=== PATIENT | male | born 1950 | race Caucasian/White ===

== ENCOUNTER 2016-03-22 09:09 | Inpatient (IN) ==
[2016-03-21 14:01] LABS: Appearance,Urine CLEAR; Bilirubin,Urine NEG (NEG); Color,Urine YELLOW; Glucose,Urine (UA) NEGATIVE (NEG); Leukocyte Esterase,Urine NEG /uL (NEG); Nitrate,Urine NEG (NEG); Protein,Urine NEG (NEG); Specific Gravity,Urine 1.021 (1.000-1.035); Urine Blood NEG mg/dL (<0.03); Urobilinogen,Urine NEG (NEG)
[2016-03-21 14:08] LABS: Basophils # (Auto) 0 K/mcL (0.0-0.3); Basophils % (Auto) 0.3 % (0.0-2.0); Eosinophils # (Auto) 0.6 K/mcL (0.0-0.7); Eosinophils % (Auto) 7.2 % (0.0-7.0); Granulocytes % (Auto) 58.6 % (38.0-78.0); Lymphocytes # (Auto) 2.3 K/mcL (1.5-4.8); Lymphocytes % (Auto) 26.2 % (15.5-49.0); Mean Cell Volume 89.6 fL (80.0-100.0); Mean Corpuscular HGB Conc 32.8 g/dL (31.0-36.0); Mean Corpuscular Hemoglobin 29.4 pg (26.0-34.0); Monocytes # (Auto) 0.7 K/mcL (0.1-0.9); Monocytes % (Auto) 7.7 % (1.0-9.0); Platelet Count 310 K/mcL (140-440); RBC 5.27 M/mcL (4.50-5.90)
[2016-03-21 14:14] LABS: Blood Urea Nitrogen 17 mg/dl (8-23)
[2016-03-26] MEDS ORDERED: CELECOXIB 200 MG CAPSULE PO SCH (06:00)
[2016-03-26] MEDS ORDERED: ACETAMINOPHEN 500 MG TABLET PO SCH (06:00)
[2016-03-26] MEDS ORDERED: oxyCODONE 10 MG TAB.ER.12H PO SCH (06:00)
[2016-03-26] MEDS ORDERED: PREGABALIN 150 MG CAPSULE PO SCH (06:00)
[2016-03-26] MEDS ORDERED: ceFAZolin 1 GM VIAL IV SCH (06:00)
[2016-03-26] MEDS ORDERED: ONDANSETRON 4 MG/2 ML VIAL IV ONE (09:39)
[2016-03-26] MEDS ORDERED: DEXAMETHASONE 10 MG/ML VIAL IV ONE (09:39)
[2016-03-26] MEDS ORDERED: PROPOFOL 200 MG/20 ML VIAL IV ONE (09:39)
[2016-03-26] MEDS ORDERED: LIDOCAINE HCL/PF 100 MG/5 ML SYRINGE IV ONE (09:39)
[2016-03-26] MEDS ORDERED: MIDAZOLAM 5 MG/5 ML VIAL IV ONE (09:39)
[2016-03-26] MEDS ORDERED: SUCCINYLCHOLINE 20 MG/ML ML IV ONE (09:39)
[2016-03-26] MEDS ORDERED: TRANEXAMIC ACID 1,000 MG/10 ML VIAL IV ONE ×2 (09:39→11:07)
[2016-03-26] MEDS ORDERED: fentaNYL 250 MCG/5 ML VIAL IV ONE (09:39)
[2016-03-26] MEDS ORDERED: KETAMINE 100 MG/ML ML IV ONE (09:39)
[2016-03-26] MEDS ORDERED: ROCURONIUM 10 MG/ML ML IV ONE (09:39)
[2016-03-26] MEDS ORDERED: GLYCOPYRROLATE 0.2 MG/ML VIAL IV ONE (09:39)
[2016-03-26] MEDS ORDERED: GENTAMICIN SULFATE 800 MG/20 ML VIAL IR ONE (10:10)
[2016-03-26] MEDS ORDERED: LACTATED RINGERS 250 ML IV PRN (10:51)
[2016-03-26] MEDS ORDERED: HYDROmorphone 2 MG/ML SYRINGE IV PRN ×2 (10:51→11:07)
[2016-03-26] MEDS ORDERED: IPRATROPIUM/ALBUTEROL 3 ML AMPUL.NEB NEB PRN (10:51)
[2016-03-26] MEDS ORDERED: FLUMAZENIL 0.1 MG/ML ML IV PRN (10:51)
[2016-03-26] MEDS ORDERED: BENZOCAINE/MENTHOL 1 LOZENGE PO PRN ×2 (10:51→11:07)
[2016-03-26] MEDS ORDERED: METOCLOPRAMIDE 10 MG/2 ML VIAL IV PRN (10:51)
[2016-03-26] MEDS ORDERED: NALOXONE HCL 0.4 MG/ML VIAL IV PRN (10:51)
[2016-03-26] MEDS ORDERED: ePHEDrine 50 MG/ML AMPUL IV PRN (10:51)
[2016-03-26] MEDS ORDERED: diphenhydrAMINE 50 MG/ML VIAL IV PRN (10:51)
[2016-03-26] MEDS ORDERED: MEPERIDINE 25 MG/ML SYRINGE IV PRN (10:51)
[2016-03-26] MEDS ORDERED: fentaNYL 100 MCG/2 ML VIAL IV PRN (10:51)
[2016-03-26] MEDS ORDERED: METHOCARBAMOL 1,000 MG/10 ML VIAL IV PRN (10:51)
[2016-03-26] MEDS ORDERED: PROMETHAZINE 25 MG/ML VIAL IV PRN (10:51)
[2016-03-26] MEDS ORDERED: ONDANSETRON 4 MG/2 ML VIAL IV PRN ×2 (10:51→11:07)
[2016-03-26] MEDS ORDERED: LACTATED RINGERS 1,000 ML IV SCH (11:00)
[2016-03-26] MEDS ORDERED: FLEETS ADULT ENEMA PR PRN (11:07)
[2016-03-26] MEDS ORDERED: POLYETHYLENE GLYCOL 3350 17 GM PACKET PO PRN (11:07)
[2016-03-26] MEDS ORDERED: MAGNESIUM HYDROXIDE 30 ML ORAL.SUSP PO PRN (11:07)
[2016-03-26] MEDS ORDERED: TEMAZEPAM 15 MG CAPSULE PO PRN (11:07)
[2016-03-26] MEDS ORDERED: ACETAMINOPHEN 325 MG TABLET PO PRN (11:07)
[2016-03-26] MEDS ORDERED: BISACODYL 10 MG SUPP.RECT PR PRN (11:07)
--- NOTE | 2016-03-26 11:07 | Brief Operative Note ---
Date of procedure: 03/26/16 Pre-op diagnosis: right hip djd Post-op diagnosis: same Procedure: Right total hip Grafts/Implants: Yes Anesthesia: GETA Complications: none Complications Description: 03/26/16 11:06 none Surgeon: Skinny Horan Applications Analyst: Samm Aguilar Estimated blood loss (cc): 50 Specimens Removed/Pathology: none sent Condition: stable Disposition: PACU
[2016-03-26] MEDS: 0.45 % SODIUM CHLORIDE 1,000 ML IV SCH ×3 (11:38→21:52)
--- NOTE | 2016-03-26 11:50 | Operative Note ---
DATE OF OPERATION: 03/26/2016 PREOPERATIVE DIAGNOSIS: Right hip degenerative arthritis. POSTOPERATIVE DIAGNOSIS: Right hip degenerative arthritis. PROCEDURE: Right total hip arthroplasty. SURGEON: Skinny Horan MD. CIRCULATION MANAGER: Samm Aguilar PA-C. ANESTHESIA: General LMA anesthesia. COMPLICATIONS: None. ESTIMATED BLOOD LOSS: About 50 mL. IMPLANTS: Size 5 stem with a 54 mm acetabular cup with a dual mobility liner and neutral neck length ceramic head. DESCRIPTION OF PROCEDURE: The patient was brought to the operating room and put to sleep with general LMA anesthesia. Once asleep, the patient had the right hip sterilely prepped and draped in the usual sterile fashion. We confirmed the operative site. Preop antibiotics had been given. Tranexamic acid was given 1 gram. Once this was done, Ioban had been placed over the skin, and we made a superior posterior approach to the hip, dissected through the fascial layer and the muscle layer. Retractors were placed and dislocated the hip. Once this was done, we made our neck cut at 34 mm from the center of hip rotation. Once done, then we reamed up the acetabulum to the size of 53 and implanted a 54 cup at 40 degrees of inclination and 20 degrees of anteversion. A dual mobility liner was placed and a manhole cover. Once done, we then broached up on the femur side. We trialed a size 5 stem, took an x-ray. This confirmed excellent placement, but the leg was about 5 to 6 mm long. We started with the leg being about 4 mm long. We then readjusted the stem and retook another x-ray which showed it to be 2-3 mm long. We then reamed the canal and seated the stem. The implant was placed, size 5 cementless stem with a neutral neck length, a dual mobility ball, which was a ceramic ball, was reduced. The hip was stable up to 90 degrees of rotation, internal and external rotation. Leg lengths seemed to be symmetric to when we started. We irrigated thoroughly. We closed the fascial layer and the capsule with #2 Ethibond and #1 Vicryl, closed the deep Farida's fascia with #1 Vicryl, and closed the skin with 2-0 Vicryl and adhesive closure. The patient tolerated this well without complication. HERMINIO:[email or web address] Job ID: [id number] Doc ID: [id number] Skinny Horan MD
--- NOTE | 2016-03-26 11:59 | XRay Report ---
CLINICAL INFORMATION: Right hip replacement. TECHNIQUE: AP pelvis. AP and lateral right hip. COMPARISON: Preoperative evaluation dated 03/14/2015 FINDINGS: Status post right total hip arthroplasty. Femoral head and acetabular complements are in anatomic position. There is postsurgical soft tissue gas. IMPRESSION: Status post right total hip arthroplasty Interpreted and Authenticated by: Zi Dia 03/26/16
[2016-03-26] MEDS: 0.9 % SODIUM CHLORIDE 10 ML SYRINGE IV SCH (13:27)
[2016-03-26] MEDS: HYDROcodone/APAP 10/325MG TABLET PO PRN (14:46)
--- NOTE | 2016-03-26 15:57 | XRay Report ---
CLINICAL INFORMATION: Right hip replacement TECHNIQUE: Intraoperative spot films COMPARISON: Preoperative evaluation dated 03/14/2015 FINDINGS: Intraoperative spot films were obtained. Right total hip arthroplasty. IMPRESSION: Intraoperative fluoroscopy and spot films. Interpreted and Authenticated by: Zi Dia 03/26/16
[2016-03-26] MEDS: ceFAZolin 1 GM VIAL IV SCH (18:48)
[2016-03-26] MEDS: SENNOSIDES 1 TABLET PO SCH (20:46)
[2016-03-26] MEDS: ASPIRIN 325 MG ENTERIC COATED TABLET PO SCH (20:46)
[2016-03-26] MEDS: DOCUSATE SODIUM 100 MG CAPSULE PO SCH (20:46)
[2016-03-26] MEDS: PROPRANOLOL 10 MG TABLET PO SCH (20:46)
[2016-03-27] MEDS: 0.9 % SODIUM CHLORIDE 10 ML SYRINGE IV SCH ×3 (01:55→13:17)
[2016-03-27] MEDS: ceFAZolin 1 GM VIAL IV SCH (01:55)
[2016-03-27] MEDS: HYDROcodone/APAP 10/325MG TABLET PO PRN ×2 (05:37→13:18)
[2016-03-27] MEDS: 0.45 % SODIUM CHLORIDE 1,000 ML IV SCH ×2 (05:38→07:06)
--- NOTE | 2016-03-27 07:34 | Orthopedic Progress Note ---
Subjective Patient information: Note initiated : 03/27/16 at 7:33 am Service Date, if different from initiated Date: [] Patient: Rock Calabrese 65 y/o M admitted on 03/26/16 for Right Total Hip Arthroplasty. Chief Complaint: [] Pt is stable this morning on post operative day 1 without any significant concerns or complaints. Patients vital signs have remained stable. Patients dressing is dry and exhibits a grossly intact neurovascular and neuromotor exam. Patients 10 point ROS is otherwise negative. Objective Vital signs: Vital Signs Temp Pulse Pulse Pulse Resp BP BP 03/27/16 07:29 03/27/16 07:27 98 H 12 03/27/16 05:55 03/27/16 04:00 97.8 F 100 H 14 122/66 03/27/16 03:00 97.8 F 100 H 14 122/66 03/27/16 02:00 03/27/16 00:00 97.8 F 110 H 14 103/69 03/26/16 23:35 97.8 F 110 H 14 103/69 03/26/16 22:34 03/26/16 20:00 98.2 F 110 H 14 132/84 03/26/16 19:25 98.2 F 110 H 14 132/84 03/26/16 18:07 96.9 F L 104 H 132/95 03/26/16 17:00 03/26/16 15:00 03/26/16 14:08 90 143/88 03/26/16 13:53 91 H 145/86 03/26/16 13:38 79 136/92 03/26/16 13:23 82 143/95 03/26/16 13:08 81 148/96 03/26/16 13:07 03/26/16 12:53 84 135/86 03/26/16 12:38 77 154/90 03/26/16 12:23 78 136/91 03/26/16 12:11 97.1 F L 75 12 144/94 03/26/16 11:56 97.1 F L 76 12 153/94 03/26/16 11:45 76 12 132/94 03/26/16 11:40 78 10 L 140/90 03/26/16 11:32 75 10 L 134/75 03/26/16 11:30 77 78 10 L 122/70 03/26/16 11:25 97.3 F L 76 10 L 122/68 Pulse Ox 03/27/16 07:29 95 03/27/16 07:27 96 03/27/16 05:55 98 03/27/16 04:00 97 03/27/16 03:00 97 03/27/16 02:00 98 03/27/16 00:00 95 03/26/16 23:35 95 03/26/16 22:34 97 03/26/16 20:00 95 03/26/16 19:25 95 03/26/16 18:07 96 03/26/16 17:00 97 03/26/16 15:00 97 03/26/16 14:08 96 03/26/16 13:53 97 03/26/16 13:38 97 03/26/16 13:23 97 03/26/16 13:08 96 03/26/16 13:07 97 03/26/16 12:53 96 03/26/16 12:38 97 03/26/16 12:23 97 03/26/16 12:11 97 03/26/16 11:56 97 03/26/16 11:45 97 03/26/16 11:40 98 03/26/16 11:32 99 03/26/16 11:30 98 03/26/16 11:25 99 Intake and Output 03/26/16 03/27/16 03/27/16 21:59 05:59 13:59 Intake Total 720 / 720 1590 / 1590 Output Total 450 / 450 1575 / 1575 Balance 270 / 270 Intake: IV 1000 / 1000 Sodium Chloride 0.45% 1, 1000 / 1000 000 ml @ 100 mls/hr IV . Q10H [facility] Rx#:[id number] Oral 720 / 720 590 / 590 Output: Urine Catheter Amount 450 / 450 Void Amount 1575 / 1575 Other: Meal Dinner Percent of Meal Consumed 50% Weight 223 lb Intake & Output: Intake & Output 03/26/16 03/27/16 03/27/16 21:59 05:59 13:59 Intake Total 720 / 720 1590 / 1590 Output Total 450 / 450 1575 / 1575 Balance 270 / 270 15 15 Weight 223 lb Intake: IV 1000 / 1000 Sodium Chloride 0.45% 1, 1000 / 1000 000 ml @ 100 mls/hr IV . Q10H [facility] Rx#:[id number] Oral 720 / 720 590 / 590 Output: Urine Catheter Amount 450 / 450 Void Amount 1575 / 1575 Other: Meal Dinner Percent of Meal Consumed 50% Incision: Yes healing Incision clean and dry: Yes Dressing: Yes clean, Yes dry Weight bearing status: full Neurological exam IM: Yes motor sensory intact, Yes neurovascular intact Extremities exam IM: Yes Foot pink and warm, Yes neurovascular intact - Labs CBC & BMP: 03/27/16 05:15 03/21/16 12:04 Labs: Orthopedic Labs 03/21/16 12:04 PT 13.1 INR 1.0 APTT 27 03/27/16 03/21/16 05:15 12:04 Hgb 15.5 Hct 39.2 L 47.2 Assessment and Plan (1) Hx of total hip arthroplasty Patient has been educated regarding wound care and dressings, follow up recommendations, and medication use. We will f/u with the patient within 2-3 weeks for wound check. Status: Acute Priority: Medium
--- NOTE | 2016-03-27 07:36 | Discharge Summary ---
Ortho Discharge - [facility] - Patient Instructions Diet: Regular Diet Activity: activity as tolerated, weight bearing as tolerated Total Hip Protocol: Follow activity instructions as provided by Physical Therapy. Dressing Care: May shower in 2 days, Aquacel Ag - leave on for 5 days Patient Education: Total Hip Replacement (DC) Additional Instructions: [place] [facility] - Problem Maintenance (1) Hx of total hip arthroplasty Status: Acute - Follow Up Plan Follow Up Appointments: Skinny Horan MD [Physician] - 04/10/16 10:00 am Disposition: Home, Self-Care Prognosis: Good Rehab Potential: Good I certify that the patient requires SNF services: No Overall status at discharge: patient is progressing back to baseline - Orders For Discharge Prescriptions: Aspirin [Ecotrin] 325 mg PO BID #60 tab.ec Docusate Sodium [Colace] 100 mg PO BID #60 capsule HYDROcodone/APAP 10/325MG [[place] 10/325Mg] 1 - 2 tab PO Q4HP PRN #90 tablet PRN Reason: Pain
[2016-03-27] MEDS: MULTIVIT,THER IRON,CA,FA & MIN 1 TABLET PO SCH (08:40)
[2016-03-27] MEDS: ASPIRIN 325 MG ENTERIC COATED TABLET PO SCH ×2 (08:40→20:21)
[2016-03-27] MEDS: DOCUSATE SODIUM 100 MG CAPSULE PO SCH ×2 (08:40→20:21)
[2016-03-27] MEDS: LEVOTHYROXINE 88 MCG TABLET PO SCH (08:40)
[2016-03-27] MEDS: HYDROCHLOROTHIAZIDE 25 MG TABLET PO SCH (08:40)
[2016-03-27] MEDS: PROPRANOLOL 10 MG TABLET PO SCH ×2 (08:40→20:21)
[2016-03-27] MEDS: LISINOPRIL 20 MG TABLET PO SCH (08:40)
[2016-03-27] MEDS ORDERED: PNEUMOCOCCAL 23-VAL P-SAC VAC 0.5 ML VIAL IM ONE (10:00)
[2016-03-27] MEDS: KETOROLAC 15 MG/ML VIAL IV PRN ×2 (10:04→17:02)
[2016-03-27] MEDS: SENNOSIDES 1 TABLET PO SCH (20:20)
[2016-03-28] MEDS: 0.9 % SODIUM CHLORIDE 10 ML SYRINGE IV SCH ×2 (01:23→05:35)
[2016-03-28] MEDS: KETOROLAC 15 MG/ML VIAL IV PRN ×2 (02:58→09:15)
[2016-03-28] MEDS: LEVOTHYROXINE 88 MCG TABLET PO SCH (07:33)
[2016-03-28] MEDS: LISINOPRIL 20 MG TABLET PO SCH (08:20)
[2016-03-28] MEDS: HYDROCHLOROTHIAZIDE 25 MG TABLET PO SCH (08:20)
[2016-03-28] MEDS: DOCUSATE SODIUM 100 MG CAPSULE PO SCH (08:20)
[2016-03-28] MEDS: MULTIVIT,THER IRON,CA,FA & MIN 1 TABLET PO SCH (08:20)
[2016-03-28] MEDS: ASPIRIN 325 MG ENTERIC COATED TABLET PO SCH (08:20)
[2016-03-28] MEDS: PROPRANOLOL 10 MG TABLET PO SCH (08:20)
[2016-03-28] MEDS: HYDROcodone/APAP 10/325MG TABLET PO PRN (08:21)
== END 2016-03-28 09:40 | disposition home or self-care (01) | DRG 470 ==
LOC: MEDSUR 03-26 06:18
PROVIDERS: ADMIT Orthopaedic Surgery; ATTEND Orthopaedic Surgery